=== PATIENT | male | born 1980 | race Two or more races ===

== ENCOUNTER 2020-12-10 16:11 | Outpatient (CLI) | payer OTHER ==
[2020-12-10 16:42] VITALS: BP 127/79
--- NOTE | 2020-12-10 16:42 | SLEEP CARE CONSULTATION ---
Information from patient questionnaire entered by Perez Mccracken. I have reviewed and concur with the information entered by Perez Mccracken. This document represents the service I personally performed and the decisions made by me, Sangeetha Borjas ARNP. History of Present Illness Service Date and Time: 12/10/2020 1611 Reason for Visit: New patient Chief Complaint: reports: Unrefreshed sleep, Snoring, Excessive daytime sleepiness, Fatigue. denies: Observed pauses in breathing Date of Onset: Past 6 months Usual bedtime: Between [id number] Time it takes to fall asleep: Very quick Observed to quit breathing while asleep: No Sleeps alone due to snoring: No Number of times waking at night: Once of twice Reasons for waking at night: reports: Snoring, Pain, Bathroom. denies: Choking, Gasping for air Toss, Turn, or Twitch while sleeping: Yes Recalls having dreams: No Usually gets out of bed at: 05:20 Feels refreshed in the morning: No Morning headache: No Sleepy or fatigued during the day: Yes Ever fallen asleep while driving: No Takes day naps: Yes (tries not to take a nap; if gets quiet falls asleep in 5 minutes) Dreams during day naps: No Prior sleep studies: No Additional HPI information: I had the pleasure of seeing CLAUDE GONZALEZ today regarding the possibility of him having a sleep disorder. His current complaints are unrefreshed sleep, fatigue and snoring. He has trouble with having no energy and not wanting to do anything. He feels he is not able to perform at this best. He wakes up not feeling rested. He snores but states it is not very loud. He states when he sits still he will fall asleep. He comes home feeling very fatigued. He is usually wanting to be doing things but it has changed in the last 6 months. His testosterone level was checked but was normal. 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 Patient is and lives in [place]. Have you smoked in the past 12 months: No Alcohol use: Yes Alcohol amount and frequency: Wine 1 to 2 glasses, twice a week Caffeine use: Yes Caffeine amount and frequency: Coffee only every morning Family History Family history of sleep disordered breathing: Yes Family Hx Sleep Apnea: Mother: Snoring, Father: Snoring, Sibling: Snoring, Grandparent: Snoring Allergies and Home Medications Drug allergies reviewed: Yes (NKDA) Home medication list reviewed: Yes (no daily medications or supplements) Review of Systems Weight gain over past 5 years: 10 Cardiovascular: denies: high blood pressure Gastrointestinal: denies: heartburn Urinary: reports: impotence Neurological: denies: headaches Psychiatric: reports: mood disorder. denies: anxiety, depression Ear/Nose/Throat: denies: tonsillectomy, wisdom teeth removed (has 3 of them) Endocrine: reports: sluggishness (tired) Musculoskeletal: reports: joint pain (stiffness), back pain, mobility problems Physical Exam Blood Pressure: 127/79 Cuff size: wrist Heart Rate: 72 O2 Saturation: 98 Height: 5 ft 6 in Weight: 175 lb Body Mass Index: 28.2 BMI Classification: Overweight Neck circumference: 15.5 (inches) Mouth and throat: narrow oropharynx Soft palate: long Hard palate: normal Uvula: normal Uvula visualization: 100% Mallampati Class I Tongue: normal in size Tonsils: small Neck: normal w/o lymphadenopathy or thyromegaly Heart: regular rate and rhythm Lungs: clear bilaterally Impression and Plan 1. Suspected Obstructive Sleep Apnea-Hypopnea Syndrome, as suggested by a history of irregular snoring, unrefreshed sleep, cognitive impairment, and excessive daytime sleepiness. Narrow oropharynx and obesity are common predisposing factors for obstructive sleep apnea-hypopnea syndrome. I recommend proceeding to polysomnography to confirm the diagnosis and to assess severity. If the patient has significant sleep disordered breathing, a manual CPAP titration study will also be performed to find the optimal treatment pressure. I informed the patient of what the sleep studies involve and after some discussion, obtained agreement to proceed. The pathophysiology of obstructive sleep apnea-hypopnea syndrome was discussed with the patient and health risks of cardiovascular and cerebrovascular disease if not treated. AAS brochure for obstructive sleep apnea-hypopnea syndrome given and reviewed. 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 Patient agreed to plan. * Schedule polysomnography +- manual CPAP titration study and return in 1-2 weeks after the study to discuss result and initiate therapy. * Avoid long distance driving or driving when feeling sleepy. * Avoid alcohol, sedative and muscle relaxant around bedtime. * Attempt to lose weight. * Review instructions provided by trained office staff on how to prepare for the sleep study. * Return for follow-up after sleep study completed. Counseling Topics: Weight loss health impact Visit Type: In Office Time Spent with Patient (minutes): 30 Provider Statement: I spent 100% of the Face to Face Visit with the patient with greater than 50% spent counseling the patient and coordination of care.
== END 2020-12-10 16:12 | disposition home or self-care (01) ==
LOC: SC 16:11
PROVIDERS: ATTEND Nurse Practitioner Family
DX: G47.10 Hypersomnia, unspecified (principal); G47.8 Other sleep disorders; R06.83 Snoring; R41.89 Other symptoms and signs involving cognitive functions and awareness; R53.83 Other fatigue; E66.3 Overweight; Z68.28 Body mass index [BMI] 28.0-28.9, adult
CPT/HCPCS: 99203; 99212

== ENCOUNTER 2021-02-18 20:37 | Outpatient (CLI) | payer OTHER | END 2021-02-18 20:38 | disposition home or self-care (01) | LOC: SC 20:37 | PROVIDERS: ATTEND Nurse Practitioner Family | DX: R06.83 Snoring (principal); G47.8 Other sleep disorders; G47.10 Hypersomnia, unspecified; R41.89 Other symptoms and signs involving cognitive functions and awareness | CPT/HCPCS: 95810 ==

== ENCOUNTER 2021-03-05 15:50 | Outpatient (CLI) | payer OTHER ==
--- NOTE | 2021-03-05 16:16 | SLEEP CARE CONSULTATION ---
Information from patient questionnaire entered by Perez Mccracken. I have reviewed and concur with the information entered by Perez Mccracken. This document represents the service I personally performed and the decisions made by , Sangeetha Borjas ARNP. History of Present Illness Service Date and Time: 03/05/2021 1550 Initial [place] Sleepiness Scale score: 16 (in 2020) Current [place] Sleepiness Scale score: 16 Additional HPI information: CLAUDE GONZALEZ returns for follow up and results of the recently performed polysomnography. The patient was informed of the following findings: No significant sleep disordered breathing with an average AHI of 3.9 and a peter oxygen saturation of 84%. His supine AHI was elevated at 6.4. I explained the pathophysiology behind obstructive sleep apnea. Patient does not have sleep apnea and was advised how weight gain could increase the risk of developing sleep apnea in the future. Patient does not have significant sleep disordered breathing but has elevated AHI in supine position so advised positional therapy. Methods to achieve positional management therapy were discussed; such as, positioning with pillows. Patient has light snoring. Snoring can be reduced by weight loss. Weight loss is best achieved with diet consult. Patient instructed to contact PCP for referral. Snoring can also be treated with an oral appliance from a dentist. Advised to check insurance coverage. In addition, an ENT evaluation can be do to see if other treatment is indicated. Patient counseled not drink alcohol less than 4 hours before bedtime as it can increase snoring and apnea. Patient was cautioned about risks of drowsy driving until sleepiness symptoms resolve. Sleep Study - Results Type of Sleep Study: Polysomnography Polysomnography/Home Sleep Study results: IMPRESSION: The quality of the study is good. The patient had normal sleep e fficiency. The sleep architecture was normal as well. Respiratory monitoring showed no significant sleep disordered breathing (AHI = 3.9) or hypoxia (peter oxygen saturation of 84% but only 0.07% to the total sleep time was spent with oxygen saturation below 90%). The few respiratory events occurred almost exclusively during supine sleep (supine AHI = 6.4; non-supine = 1.78). Snore was light to loud in intensity. There was no significant periodic leg movement of sleep. Cardiac rhythm was normal sinus rhythm without significant arrhythmia. No abnormal behavior (parasomnia) observed during the night. Allergies and Home Medications Home medication list reviewed: Yes (no changes) Review of Systems Review of systems same as previous: Yes (no changes) Physical Exam Heart Rate: 72 O2 Saturation: 98 Height: 5 ft 6 in Weight: 174 lb Body Mass Index: 28.0 BMI Classification: Overweight Impression and Plan Snoring but no significant sleep disordered breathing. Patient does have an elevated supine AHI and was advised to avoid sleeping on his back. Patient advised that often weight loss will reduce snoring as well as apnea risk. An oral appliance can also be used for snoring. This would require a dental consu ltation. Patient cautioned not to use other online appliances as can cause bite issues. A list of accredited dentists in [facility] and one local dentist who makes oral appliances available in the office. Patient is advised to check if insurance will cover. An ENT consult can also be helpful to determine if any other treatment is an option. Patient was encouraged to lose weight for their overall health and to reduce apneas. * Attempt to lose weight * Avoid alcohol consumption near bedtime * The patient is cautioned about driving until sleepiness is completely resolved. * Return as needed. Counseling Topics: Weight loss health impact Visit Type: In Office Time Spent with Patient (minutes): 15 Provider Statement: I spent 100% of the Face to Face Visit with the patient with greater than 50% spent counseling the patient and coordination of care.
== END 2021-03-05 15:51 | disposition home or self-care (01) ==
LOC: SC 15:50
PROVIDERS: ATTEND Nurse Practitioner Family
DX: R06.83 Snoring (principal)
CPT/HCPCS: 99212